=== PATIENT | male | born 1990 | race Caucasian/White ===

== ENCOUNTER 2023-05-02 11:11 | Inpatient (IN) | payer OTHER ==
[2023-05-02 12:00] VITALS: BMI 27.4
[2023-05-02] MEDS ORDERED: chlordiazePOXIDE HCL 25 MG CAPSULE PO PRN (17:28)
[2023-05-02] MEDS ORDERED: NALOXONE HCL 0.4 MG/ML VIAL IM PRN (17:29)
[2023-05-02] MEDS ORDERED: hydrOXYzine PAMOATE 25 MG CAPSULE (FP) PO PRN (17:29)
[2023-05-02] MEDS ORDERED: MAGNESIUM HYDROX 2400MG/30ML ORAL SUSPENSION 30 ML CUP PO PRN (17:29)
[2023-05-02] MEDS ORDERED: DICYCLOMINE HCL 10 MG CAPSULE PO PRN (17:29)
[2023-05-02] MEDS ORDERED: LOPERAMIDE HCL 2 MG CAPSULE PO PRN (17:29)
[2023-05-02] MEDS ORDERED: METHOCARBAMOL 500 MG TABLET PO PRN (17:29)
[2023-05-02] MEDS ORDERED: BISMUTH SUBSALICYLATE 524 MG/30 ML PO PRN (17:29)
[2023-05-02] MEDS ORDERED: NALOXONE HCL (KLOXXADO) 8 MG SPRAY NS PRN (17:29)
[2023-05-02] MEDS ORDERED: ONDANSETRON *ODT* 4 MG TABLET SL PRN (17:29)
[2023-05-02] MEDS ORDERED: BENZOCAINE/MENTHOL (CHLORASEPTIC ) LOZENGE MM PRN (17:29)
[2023-05-02] MEDS ORDERED: POLYETHYLENE GLYCOL (HEALTHYLAX) 3350 17 GM PACKET PO PRN (17:29)
[2023-05-02] MEDS ORDERED: BENZONATATE 200 MG CAPSULE PO PRN (17:29)
[2023-05-02] MEDS ORDERED: ACETAMINOPHEN 325 MG TABLET (FP) PO PRN (17:29)
[2023-05-02] MEDS ORDERED: MAG HYDROX/AL HYDROX/SIMETH 30 ML UNIT-DOSE CUP PO PRN (17:29)
[2023-05-02] MEDS ORDERED: IBUPROFEN 600 MG TABLET (FP) PO PRN (17:29)
[2023-05-02] MEDS ORDERED: guaiFENesin 600 MG TABLET.ER (FP) PO PRN (17:29)
[2023-05-02] MEDS ORDERED: IBUPROFEN 400 MG TABLET (FP) PO PRN (17:29)
[2023-05-02] MEDS: THIAMINE HCL 100 MG TABLET (FP) PO SCH (23:17)
[2023-05-02] MEDS: chlordiazePOXIDE HCL 25 MG CAPSULE PO SCH (23:17)
[2023-05-02] MEDS: MELATONIN 5 MG TABLETS PO SCH (23:17)
[2023-05-03] MEDS: chlordiazePOXIDE HCL 25 MG CAPSULE PO SCH ×4 (05:27→23:35)
[2023-05-03 09:47] LABS: CHLORIDE 107 mmol/L (98-107); POTASSIUM 4.6 mmol/L (3.5-5.1); SODIUM 139 mmol/L (136-145)
[2023-05-03 09:50] LABS: HEMATOCRIT 41.2 % (35.4-49); HEMOGLOBIN 13.8 GM/dL (11.7-16.9); MCH 29.1 pg (25.7-33.7); MCHC 33.5 g/dl (32.0-35.9); MEAN CELL VOLUME 87.1 fl (80-96); MEAN PLT VOLUME 7.9 fl (7.5-11.1); PLATELET COUNT 225 10^3/uL (134-434); RBC 4.73 M/mm3 (4.00-5.60); RDW 13.6 % (11.9-15.9); WHITE BLOOD COUNT 6.1 K/mm3 (4.0-10.0)
[2023-05-03 09:54] LABS: CALCIUM 8.8 mg/dL (8.5-10.1)
[2023-05-03 09:55] LABS: ALBUMIN 3.2 g/dl (3.4-5.0); ANION GAP 3 mmol/L (4-13); CO2 30 mmol/L (21-32); GLUCOSE,RANDOM 81 mg/dL (74-106)
[2023-05-03 09:58] LABS: SGOT/AST 14 U/L (15-37); SGPT/ALT 25 U/L (13-61)
[2023-05-03 10:00] LABS: BILIRUBIN,TOTAL 0.9 mg/dL (0.2-1); TOT PROT 5.9 g/dl (6.4-8.2)
[2023-05-03 10:01] LABS: ALK PHOS 71 U/L (45-117)
[2023-05-03] MEDS: PRENATAL VITAMINS W/ FOLIC ACID TABLET (FP) PO SCH (10:55)
[2023-05-03] MEDS: MELATONIN 5 MG TABLETS PO SCH (23:05)
[2023-05-03] MEDS: THIAMINE HCL 100 MG TABLET (FP) PO SCH (23:05)
[2023-05-04] MEDS: chlordiazePOXIDE HCL 25 MG CAPSULE PO SCH ×2 (05:50→06:13)
[2023-05-04 09:48] VITALS: BP 114/67; PULSE 84; RESP 16; TEMP 98
[2023-05-04] MEDS ORDERED: ALBUTEROL SO4 HFA INHALER IH PRN ×2 (09:57→12:01)
[2023-05-04] MEDS ORDERED: LORazepam 1 MG TABLET PO PRN (09:59)
[2023-05-04] MEDS: PRENATAL VITAMINS W/ FOLIC ACID TABLET (FP) PO SCH (10:10)
[2023-05-04] MEDS ORDERED: LORazepam 2 MG TABLET PO SCH (17:00)
[2023-05-05] MEDS ORDERED: chlordiazePOXIDE HCL 10 MG CAPSULE PO PRN
[2023-05-05] MEDS ORDERED: chlordiazePOXIDE HCL 10 MG CAPSULE PO SCH (05:00)
[2023-05-05] MEDS ORDERED: LORazepam 1 MG TABLET PO SCH (05:00)
[2023-05-06] MEDS ORDERED: LORazepam 0.5 MG TABLET PO PRN
[2023-05-06] MEDS ORDERED: LORazepam 0.5 MG TABLET PO SCH (05:00)
[2023-05-06] MEDS ORDERED: chlordiazePOXIDE HCL 10 MG CAPSULE PO SCH (05:00)
[2023-05-07] MEDS ORDERED: LORazepam 0.5 MG TABLET PO ONE (05:00)
[2023-05-07] MEDS ORDERED: chlordiazePOXIDE HCL 10 MG CAPSULE PO ONE (05:00)
== END 2023-05-04 12:16 | disposition left against medical advice (07) | DRG 770 ==
LOC: SUATTDRO 11:11 → YASAS 11:11 → Y6N 18:19
PROVIDERS: ADMIT Allergy & Immunology; ATTEND Surgery
PROC: HZ2ZZZZ Detoxification Services for Substance Abuse Treatment (ICD-10-PCS; principal; 2023-05-02)
DX: F10.230 Alcohol dependence with withdrawal, uncomplicated (principal); F14.20 Cocaine dependence, uncomplicated; F12.20 Cannabis dependence, uncomplicated; F17.210 Nicotine dependence, cigarettes, uncomplicated; F32.A Depression, unspecified; F41.9 Anxiety disorder, unspecified; F43.10 Post-traumatic stress disorder, unspecified; F51.05 Insomnia due to other mental disorder; Z28.310 Unvaccinated for COVID-19; Z28.9 Immunization not carried out for unspecified reason; Z56.0 Unemployment, unspecified; Z59.00 Homelessness unspecified
CPT/HCPCS: 36415; 80053; 80307; 85027; 86780; 87635; 93005; 93010